=== PATIENT | female | born 1985 | race Caucasian/White ===

== ENCOUNTER 2019-10-08 18:38 | Emergency (ER) | payer OTHER ==
[~2019-10-08] VITALS: Ht 157.5 cm; Wt 56.7 kg
[2019-10-08] MEDS ORDERED: CYCLOBENZAPRINE10 MG ORAL (18:53)
[2019-10-08] MEDS ORDERED: GABAPENTIN300 MG ORAL (18:53)
[2019-10-08] MEDS ORDERED: COMPAZINE10 MG ORAL (18:53)
[2019-10-08] MEDS ORDERED: HYDROXYZINE HCL25 M1 PO (18:53)
--- NOTE | 2019-10-08 18:56 | NUR ---
ED Nurse Note: pt arrives from home via lafd with lapd in attendance. pt cooperative with rn care. states unable to void at this time. pt states she took meds as per triage note at 1730. relates she just wanted to sleep and was not trying to harm self. 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 denies previous suicidal thoughts or attempts. pt given pt gown and belongings removed from area.
--- NOTE | 2019-10-08 19:07 | NUR ---
HAND-OFF: Report given to shakira priest.
[2019-10-08 19:20] VITALS: BP 152/99
--- NOTE | 2019-10-08 19:20 | NUR ---
ED Nurse Note: Pt placed on 5150 psych hold at this time by [employer].
--- NOTE | 2019-10-08 19:20 | NUR ---
ED Nurse Note: Pt received from IHSAN Carpio. Pt is aaox4, no acute distress noted. VSS. Pt is resting in bed, appears mildly anxious. Blood drawn by RN and sent to lab. Pt denies wanting to harm herself or others at this time. Pt states she took pills to sleep, not kill herself.
--- NOTE | 2019-10-08 19:20 | NUR ---
ED Nurse Note: RN bedside. Safety measures in place. Will continue to monitor.
--- NOTE | 2019-10-08 19:30 | NUR ---
Belongings locked in locker #1
--- NOTE | 2019-10-08 19:45 | NUR ---
ED Nurse Note: Pt medication bottles taken from pt and locked in medication box in ER pyxis room. Pt has 3 bottles with no pills in them and 1 bottle with multiple pills. All medications recorded on bag.
[2019-10-08 20:08] LABS: BASOPHILS % (AUTO) 1.4 % (0.0-2.0); EOSINOPHILS % (AUTO) 1.9 % (0.0-3.0); HEMOGLOBIN 14.2 G/DL (12.0-16.0); LYMPHOCYTES % (AUTO) 15.5 % (20.0-45.0); MEAN CORPUSCULAR VOLUME 87 FL (80-99); MONOCYTES % (AUTO) 3.2 % (1.0-10.0); NEUTROPHILS % (AUTO) 78.1 % (45.0-75.0); PLATELET COUNT 307 K/UL (150-450); RED BLOOD COUNT 4.93 M/UL (4.20-5.40); RED CELL DISTRIBUTION WIDTH 12.1 % (11.6-14.8)
--- NOTE | 2019-10-08 20:15 | NUR ---
ED Nurse Note: Pt states she has a headache and is requesting medication for pain. ERMD aware, will carry out order for reglan and tylenol.
[2019-10-08 20:17] LABS: ANION GAP 12 mmol/L (5-15); BLOOD UREA NITROGEN 7 mg/dL (7-18); CALCIUM 9.3 MG/DL (8.5-10.1); CARBON DIOXIDE 26 MMOL/L (21-32); CHLORIDE 101 MMOL/L (98-107); CREATININE 0.8 MG/DL (0.55-1.30); POTASSIUM 3.5 MMOL/L (3.5-5.1); SODIUM 139 MMOL/L (136-145)
[2019-10-08 20:18] LABS: ALANINE AMINOTRANSFERASE 23 U/L (12-78); ALBUMIN/GLOBULIN RATIO 1.1 (1.0-2.7); ALKALINE PHOSPHATASE 66 U/L (46-116); ASPARTATE AMINO TRANSFERASE 19 U/L (15-37); BILIRUBIN,TOTAL 0.5 MG/DL (0.2-1.0)
[2019-10-08] MEDS ORDERED: Acetaminophen 500mg (ES) tab ORAL ONE (20:30)
[2019-10-08 20:37] LABS: APPEARANCE,URINE SLIGHTLY CLOUDY; BILIRUBIN, URINE NEGATIVE (NEGATIVE); COLOR,URINE PALE YELLOW; GLUCOSE, URINE (UA) NEGATIVE (NEGATIVE); KETONES,URINE NEGATIVE (NEGATIVE); LEUKOCYTE ESTERASE ,URINE 1+ (NEGATIVE); NITRITE,URINE NEGATIVE (NEGATIVE); PH,URINE 7 (4.5-8.0); PROTEIN,URINE NEGATIVE (NEGATIVE); UROBILINOGEN,URINE NORMAL MG/DL (0.0-1.0)
--- NOTE | 2019-10-08 21:25 | NUR ---
ED Nurse Note: Received report from IHSAN Sumner. Patient aao x 4 and ambulatory and placed in OB room. Patient stable upon assessment. Denies SI/HI at this time.
--- NOTE | 2019-10-08 21:25 | NUR ---
HAND-OFF: Pt moved to OB room at this time. Pt is aaox4, no acute distress noted. Pt is acting calm and cooperative. Report given to IHSAN Sin and endorsed plan of care.
--- NOTE | 2019-10-08 21:29 | Emergency Room Report ---
History of Present Illness General Chief Complaint: Overdose Source: Patient, EMS Present Illness HPI 33-year-old female presents the ED for psych eval. Brought in by EMS from home. Patient reportedly overdosed on medication. Patient states she was texting her friend and stated that she was stressed out and she needed to sleep. States she took a few extra pills but was not trying to hurt herself. Took some hydroxyzine, Flexeril, gabapentin. Friend called 911. Patient denies SI or HI. Denies trying to hurt her self in the past. Denies any abdominal pain. Denies any nausea or vomiting. No other aggravating relieving factors. Denies any other associated symptoms Allergies: Coded Allergies: MEPERIDINE (Verified Allergy, Unknown, 10/08/19) Patient History Past Medical History: none Past Surgical History: none Pertinent Family History: none Social History: Denies: smoking, alcohol use, drug use Last Menstrual Period: 2 months ago Now: No Immunizations: UTD Reviewed Nursing Documentation: PMH: Agreed; PSxH: Agreed Nursing Documentation-PMH Past Medical History: No History, Except For Review of Systems All Other Systems: negative except mentioned in HPI Physical Exam Vital Signs Date Time Temp Pulse Resp B/P (MAP) Pulse Ox O2 Delivery O2 Flow Rate FiO2 10/08/19 18:47 98.6 120 14 152/98 (116) 98 Room Air Sp02 EP Interpretation: reviewed, normal General Appearance: no apparent distress, alert, GCS 15, non-toxic Head: normocephalic, atraumatic Eyes: bilateral eye normal inspection, bilateral eye PERRL ENT: hearing grossly normal, normal pharynx, no angioedema, normal voice Neck: full range of motion, supple/symm/no masses Respiratory: chest non-tender, lungs clear, normal breath sounds, speaking full sentences Cardiovascular #1: regular rate, rhythm, no edema Cardiovascular #2: 2+ carotid (R), 2+ carotid (L), 2+ radial (R), 2+ radial (L) , 2+ dorsalis pedis (R), 2+ dorsalis pedis (L) Gastrointestinal: normal bowel sounds, non tender, soft, non-distended, no guarding, no rebound Rectal: deferred Genitourinary: normal inspection, no CVA tenderness Musculoskeletal: back normal, normal range of motion, gait/station normal, non- tender Neurologic: alert, motor strength/tone normal, oriented x3, sensory intact, responsive, speech normal Psychiatric: judgement/insight normal, memory normal, mood/affect normal, no suicidal/homicidal ideation Reflexes: 3+ bicep (R), 3+ bicep (L), 3+ tricep (R), 3+ tricep (L), 3+ knee (R) , 3+ knee (L) Lymphatic: no adenopathy Medical Decision Making Diagnostic Impression: Primary Impression: Drug overdose Qualified Codes: T50.901A - Poisoning by unspecified drugs, medicaments and biological substances, accidental (unintentional), initial encounter ER Course Hospital Course 33-year-old female presents for psychiatric evaluation. Took several of her pills in order to sleep Differential diagnoses include: Major depressive disorder, unspecified psychosis , EtOH abuse, drug abuse Clinical course Patient placed on stretcher. On one to one observation. After initial history and physical I ordered labs, U. tox Labs-electrolytes normal, aspirin/Tylenol levels normal, EtOH level normal, U. tox negative Patient is medically cleared and pending psychiatric evaluation. i. I feel this is a highly complex case requiring extensive working including EKG/Rhythm strip, Xray/CT/US, Blood/urine lab work, repeat exams while in ED, and administration of strong opiates/narcotics for pain control, admission to hospital or close patient follow up. Labs Test 10/08/19 19:20 10/08/19 20:20 White Blood Count 12.0 K/UL (4.8-10.8) Red Blood Count 4.93 M/UL (4.20-5.40) Hemoglobin 14.2 G/DL (12.0-16.0) Hematocrit 43.0 % (37.0-47.0) Mean Corpuscular Volume 87 FL (80-99) Mean Corpuscular Hemoglobin 28.8 PG (27.0-31.0) Mean Corpuscular Hemoglobin Concent 33.0 G/DL (32.0-36.0) Red Cell Distribution Width 12.1 % (11.6-14.8) Platelet Count 307 K/UL (150-450) Mean Platelet Volume 10.3 FL (6.5-10.1) Neutrophils (%) (Auto) 78.1 % (45.0-75.0) Lymphocytes (%) (Auto) 15.5 % (20.0-45.0) Monocytes (%) (Auto) 3.2 % (1.0-10.0) Eosinophils (%) (Auto) 1.9 % (0.0-3.0) Basophils (%) (Auto) 1.4 % (0.0-2.0) Sodium Level 139 MMOL/L (136-145) Potassium Level 3.5 MMOL/L (3.5-5.1) Chloride Level 101 MMOL/L (98-107) Carbon Dioxide Level 26 MMOL/L (21-32) Anion Gap 12 mmol/L (5-15) Blood Urea Nitrogen 7 mg/dL (7-18) Creatinine 0.8 MG/DL (0.55-1.30) Estimat Glomerular Filtration Rate > 60 mL/min (>60) Glucose Level 100 MG/DL (74-106) Calcium Level 9.3 MG/DL (8.5-10.1) Total Bilirubin 0.5 MG/DL (0.2-1.0) Aspartate Amino Transf (AST/SGOT) 19 U/L (15-37) Alanine Aminotransferase (ALT/SGPT) 23 U/L (12-78) Alkaline Phosphatase 66 U/L (46-116) Total Protein 7.6 G/DL (6.4-8.2) Albumin 4.0 G/DL (3.4-5.0) Globulin 3.6 g/dL Albumin/Globulin Ratio 1.1 (1.0-2.7) Salicylates Level 1.0 ug/mL (2.8-20) Acetaminophen Level < 2 MCG/ML (10-30) Serum Alcohol < 3 mg/dL Urine Color Pale yellow Urine Appearance Slightly cloudy Urine pH 7 (4.5-8.0) Urine Specific [place] 1.010 (1.005-1.035) Urine Protein Negative (NEGATIVE) Urine Glucose (UA) Negative (NEGATIVE) Urine Ketones Negative (NEGATIVE) Urine Blood Negative (NEGATIVE) Urine Nitrite Negative (NEGATIVE) Urine Bilirubin Negative (NEGATIVE) Urine Urobilinogen Normal MG/DL (0.0-1.0) Urine Leukocyte Esterase 1+ (NEGATIVE) Urine RBC 0-2 /HPF (0 - 2) Urine WBC 2-4 /HPF (0 - 2) Urine Squamous Epithelial Cells Moderate /LPF (NONE/OCC) Urine Bacteria Many /HPF (NONE) Urine HCG, Qualitative Negative (NEGATIVE) Urine Opiates Screen Negative (NEGATIVE) Urine Barbiturates Screen Negative (NEGATIVE) Phencyclidine (PCP) Screen Negative (NEGATIVE) Urine Amphetamines Screen Negative (NEGATIVE) Urine Benzodiazepines Screen Negative (NEGATIVE) Urine Cocaine Screen Negative (NEGATIVE) Urine Marijuana (THC) Screen Negative (NEGATIVE) Last Vital Signs Date Time Temp Pulse Resp B/P (MAP) Pulse Ox O2 Delivery O2 Flow Rate FiO2 10/08/19 21:05 98.6 10/08/19 19:20 99 17 152/99 100 Room Air Status: improved Disposition: XFER TO PSYCH HOSP/UNIT Condition: Serious Referrals: [facility] (PCP) Parag Ploanco MD Oct 08, 2019 21:28
--- NOTE | 2019-10-08 22:18 | NUR ---
ED Nurse Note: Spoke to Shawna from [place], charge nurse made aware of fax number for clinical data to be faxed to [facility]
[2019-10-08 22:40] VITALS: BP 128/81
--- NOTE | 2019-10-08 23:25 | NUR ---
ED Nurse Note: Patient ambulated to restroom supervised. No acute distress noted.
--- NOTE | 2019-10-08 23:26 | NUR ---
ED Nurse Note: Patient ambulated to room in stable condition.
[2019-10-09] MEDS ORDERED: Acetaminophen 500mg (ES) tab ORAL ONE (01:45)
--- NOTE | 2019-10-09 01:46 | NUR ---
ED Nurse Note: Gave report to IHSAN Mcqueen. patient is accompanied by ambulance personnel. accepting nurse is aware of patients current heart rate. all belongings sent with patient
[2019-10-09 01:51] VITALS: BP 143/97
--- NOTE | 2019-10-09 01:51 | NUR ---
ER DISCHARGE NOTE: Patient is cleared to be discharged per ERMD, pt is aox4, on room air, with stable vital signs. report given to unit #[id number] with [facility] ambulance. Ambulance personnel took all of patients belongings. pt transported via gurney. Patient stable upon discharge.
== END 2019-10-09 01:51 ==
LOC: EDBD 18:38 → EMR 21:01
DX: T50.991A Poisoning by other drugs, medicaments and biological substances, accidental (unintentional), initial encounter (principal); Y92.9 Unspecified place or not applicable; Z88.5 Allergy status to narcotic agent
CPT/HCPCS: 36415; 80053; 80307; 81003; 81025; 85025; 87086; 99285; G0480